=== PATIENT | male | born 1940 | race Caucasian/White ===

== ENCOUNTER 2021-05-13 17:02 | Observation (INO) ==
[2021-05-13] MEDS ORDERED: NS 0.9% 1000 ml BAG 1,000 ML IV SCH (17:30)
[2021-05-13] MEDS ORDERED: Ondansetron 4 mg VIAL 2 MG/ML 2 ml VIAL IV PRN ×2 (18:58→21:18)
[2021-05-13] MEDS ORDERED: Rocuronium 50 mg VIAL 10 mg/ml 5 ml VIAL (50 mg) ONE (19:00)
[2021-05-13] MEDS ORDERED: Lidocaine 2% PF 5 ML VIAL ONE (19:00)
[2021-05-13] MEDS ORDERED: Propofol 10 MG/ML 20 ML BTL ONE (19:00)
[2021-05-13] MEDS ORDERED: Dexamethasone IV 4 MG/ML VIAL 1 ml VIAL ONE (19:00)
[2021-05-13] MEDS ORDERED: ceFOXitin 2 GM IVPREMIX 2 GM/50 ML BAG ONE (19:21)
[2021-05-13] MEDS ORDERED: Bupivacaine 0.25% EPI 200,000 30 ML SDV ONE (19:35)
[2021-05-13] MEDS ORDERED: HYDROmorphone 1 MG/1 ML SYRINGE ONE (20:23)
[2021-05-13] MEDS ORDERED: HYDROmorphone 1 MG/1 ML SYRINGE IV PRN (21:18)
[2021-05-13] MEDS ORDERED: Naloxone 0.4 mg VIAL 0.4 mg/ml 1 ml VIAL IV PRN (21:18)
[2021-05-13] MEDS: Lactated Ringers 1000 ml BAG 1,000 ML IV SCH (22:37)
[2021-05-13] MEDS ORDERED: oxyCODONE/Acetamin 5/325 mg TAB PO PRN (22:54)
[2021-05-13] MEDS ORDERED: HYDROmorphone 0.5 MG/0.5 ML SYRINGE IV PRN (22:55)
[2021-05-13] MEDS: Heparin 5000 UNITS/ML 1 mL VIAL SUBCUT SCH (23:09)
[2021-05-14] MEDS: Lactated Ringers 1000 ml BAG 1,000 ML IV SCH (05:00)
[2021-05-14] MEDS: Heparin 5000 UNITS/ML 1 mL VIAL SUBCUT SCH (06:06)
[2021-05-14 06:25] LABS: ABS Lymphocytes 1.3 10^3/ul (1.0-4.8); ABS Monocytes 0.5 10^3/ul (0-0.8); ABS Neutrophils 6.4 10^3/ul (1.5-7.7); Hematocrit 36 % (42-52); Hemoglobin 12.4 g/dL (14.0-18.0); Lymphocyte % 16.2 %; Mean Corpuscular HGB Conc 35 g/dL (31-36); Mean Corpuscular Hemoglobin 34 pg (27-31); Mean Corpuscular Volume 99 fL (80-94); Mean Platelet Volume 7.8 fL (7.4-10.4); Platelet Count 198 10^3/uL (150-450); Red Cell Distribution Width 13 % (10-15); White Blood Count 8.2 10^3/uL (3.5-10.8)
[2021-05-14 12:12] VITALS: BP 105/40
== END 2021-05-14 12:25 | disposition home or self-care (01) ==
LOC: ED 17:02 → OR 20:03 → SSU 20:03
PROVIDERS: ADMIT Surgery; ATTEND Surgery